=== PATIENT | male | born 1990 | race Caucasian/White ===

== ENCOUNTER 2022-04-24 19:30 | Outpatient (CLI) | payer OTHER | END 2022-04-24 19:31 | disposition home or self-care (01) | LOC: SLEEPLAB 19:30 | PROVIDERS: ATTEND Internal Medicine | DX: G47.33 Obstructive sleep apnea (adult) (pediatric) (principal); R06.83 Snoring; G47.10 Hypersomnia, unspecified; E66.9 Obesity, unspecified; Z68.25 Body mass index [BMI] 25.0-25.9, adult | CPT/HCPCS: 95811 ==

== ENCOUNTER 2025-08-08 10:59 | Outpatient (CLI) | payer OTHER | END 2025-08-08 11:00 | disposition home or self-care (01) | LOC: DTY/OP 10:59 | PROVIDERS: ATTEND Family Medicine | DX: K58.0 Irritable bowel syndrome with diarrhea (principal) | CPT/HCPCS: 97802 ==

== ENCOUNTER 2025-08-30 10:54 | Outpatient (CLI) | payer OTHER ==
[2025-08-30] MEDS ORDERED: Sincalide 5 MCG VIAL ONE (12:22)
[2025-08-30] MEDS ORDERED: Bacteriostatic Normal Saline 30 ML VIAL ONE (12:23)
== END 2025-08-30 10:55 | disposition home or self-care (01) ==
LOC: NM 10:54
PROVIDERS: ATTEND Family Medicine
DX: K80.50 Calculus of bile duct without cholangitis or cholecystitis without obstruction (principal)
CPT/HCPCS: 78227; A9537; J2805